=== PATIENT | male | born 1990 | race Caucasian/White ===

== ENCOUNTER 2025-08-02 01:40 | Emergency (ER) | payer OTHER ==
[2025-08-02] MEDS ORDERED: Ondansetron 4 MG/2 ML SDV IM ONE (01:52)
[2025-08-02] MEDS ORDERED: HYDROmorphone 2 MG/ML SDV IM ONE (01:52)
== END 2025-08-02 02:00 ==
LOC: FB.ED 01:40
DX: G43.909 Migraine, unspecified, not intractable, without status migrainosus (principal)
CPT/HCPCS: 96372; 99283; J1171